=== PATIENT | female | born 1960 | race Caucasian/White ===

== ENCOUNTER 2024-12-03 08:07 | Emergency (ER) | payer BC, SELFPAY ==
[2024-12-03] VITALS (49 sets, daily range): BP systolic 83–114; BP diastolic 54–90; PULSE 62–200; RESP 11–32; TEMP 35.8; O2SAT 94–100; BMI 28.4
--- OUTSIDE RECORDS SUMMARY | 2024-12-03 08:11 | XMS_ITS | Clinical Summary ---
Author Organization [facility] Address [address] [place], [place] [address] [address] Care Team Providers Care Tool Repairer Name Role Phone Lila Reyna MD Primary Care Provider [phone] Allergies Active Allergy Reactions Criticality Noted Date Comments Lisinopril Cough 10/02/2009 Sulfa Antibiotics Rash Low 04/18/2006 Medications aspirin (ASA) 81 MG tablet Take by mouth daily 09/12/2007 Active BYDUREON 2 MG recon vial kit susp for weekly inj 04/20/2018 Active fish oil-omega-3 fatty acids 1000 MG capsule 09/06/2007 Act ar ammonium lactate (AMLACTIN) 12 % external cream daily 10/25/2017 Acti ve atorvastatin (LIPITOR) 20 MG tablet Take 20 mg by mouth 08/05/2018 Active buPROPion (WELLBUTRIN SR) 150 MG 12 hr tablet 05/26/2018 Active cinnamon 500 MG CAPS Take 1,000 mg by mouth 03/15/2018 Active clobetasol (TEMOVATE) 0.05 % CREA cream once daily if needed. 10/13/2017 Active clobetasol (TEMOVATE) 0.05 % external ointment one time if needed. 10/13/2017 Active hydrochlorothia zide (HYDRODIURIL) 25 MG tablet Take 25 mg by mouth 08/05/2018 Active hydrocortisone 2.5 % ointment 10/13/2017 Acti ve ketoconazole (NIZORAL) 2 % external shampoo 04/18/2018 Active losartan (COZAAR) 25 MG tablet 08/07/2018 Active meclizine (ANTIVERT) 12.5 MG tablet Take 12.5 mg by mouth 01/18/2018 Active metFORMIN (GLUCOPHAGE-XR) 500 MG 24 hr tablet 07/19/2018 Active Multiple Vitamin (MULTI-VITAMINS ) TABS 09/06/2007 Active rOPINIRole (REQUIP) 0.25 MG tablet Take 0.25 mg by mouth 01/05/2018 Active FLUoxetine (PROZAC) 10 MG capsule Take 10 mg by mouth daily Active glimepiride (AMARYL) 2 MG tablet Take 4 mg by mouth every morning (before breakfast) Active zinc gluconate 50 MG tablet Take 50 mg by mouth daily Active VITAMIN D, CHOLECALCIFEROL , PO Take 5,000 mcg by mouth Active Active Problems Problem Noted Date Diagnosed Date Psoriasis 08/16/2018 Social History Tobacco Use Types Packs/Day Years Used Date Smoking Tobacco: Never Smokeless Tobacco: Never PHQ-2 Answer Date Recorded PHQ-2 Score 0 08/16/2018 Adolescent Education Answer Date Record ed Getting School Help Needed Not on file 01/21 Comments Unknown Sex and Gender Information Value Date Recorded Sex Assigned at Not on file Legal Sex Female 10:09 AM CDT Gender Identity Not on file Sexual Orientation Not on file Last Filed Vital Signs Vital Sign Reading Time Taken Comments Blood Pressure 141/82 08/16/2018 6:53 AM CDT Pulse 74 08/16/2018 6:53 AM CDT Temperature - - Respiratory Rate - - Oxygen Saturation - - Inhaled Oxygen Concentration - - Weight - - Height - - Body Mass Index - - Plan of Treatment Not on file Insurance [employer] [facility] Care Teams Tool Repairer Relationship Specialty Start Date End Date Lila Reyna MD PCP - General Family Practice 07/24/18
--- OUTSIDE RECORDS SUMMARY | 2024-12-03 08:11 | XMS_ITS | Clinical Summary ---
Author Organization [facility] [facility] Address [address] [place] [address] Care Team Providers Care Facility Manager Histology Name Role Phone Lupe Qiu Primary Care Provider Allergies Active Allergy Reactions Criticality Noted Date Comments Cats (Fur, Dander, Saliva) 7 nasal congestion and watery eyes Lisinopril Cough 10/02/2009 Sulfa (Sulfonamide Antibiotics) Rash 04/18/2006 Medications FISH OIL 1,000 MG CAP Take by mouth. 500 mg once daily 09/06/19 08 Active MULTIVITAMIN TAB take 1 tablet by oral route once daily with food 09/06/19 08 Active hydrocortisone (HYTONE) 2.5 % ointment one time if needed. 10/14/19 18 Active Clobetasol Propionate-Emolnt 0.05 % cream once daily if needed. 10/14/19 18 Active ammonium lactate 12% (LACHYDRIN) 12 % cream one time if needed. 10/26/19 18 Active cholecalciferol, Vitamin D3, 5,000 unit tab tablet Take 5,000 mcg by mouth once weekly. Active aspirin (ECOTRIN) 81 mg enteric coated tabletIndications: Open displaced fracture of first metatarsal bone of right foot with malunion Take 1 Tablet (81 mg) by mouth once daily. 21 Tablet 3 11:39 AM CDT 02/09/20 23 Active meclizine (ANTIVERT) 12.5 mg tabletIndications: Vertigo Take 1 Tablet (12.5 mg) by mouth 3 times daily if needed for Vertigo. 30 Tablet 01/30/20 24 Active blood-glucose meterIndications:D iabetes mellitus without complication (HC) Freestyle [place] Lite - Please dispense meter and strips. Test once daily as directed 1 Each 4 3:07 PM CDT 02/20/20 24 Active blood sugar diagnostic (Blood Glucose Test) stripIndications:D iabetes mellitus without complication (HC) Test 1 times per day as directed. [place] Freestyle Lite meter and compatible strips 100 Each 12 5 8:58 AM CDT 02/20/20 24 Active apremilast (Otezla) 30 mg tab tablet Take 1 tablet by mouth twice daily. 60 Tablet 5 5 10:04 AM CDT 05/24/19 25 Active atorvastatin (Lipitor) 20 mg tabletIndications: Hyperlipidemia, unspecified hyperlipidemia type Take 1 Tablet (20 mg) by mouth at bedtime. 90 Tablet 11/20/19 25 Active buPROPion (WELLBUTRIN SR) 150 mg Sustained-Release tabletIndications: Depression, unspecified depression type Take 1 Tablet (150 mg) by mouth once daily in the morning. 90 Tablet 11/20/19 25 Active FLUoxetine (PROZAC) 10 mg capsuleIndications :Depression, unspecified depression type Take 1 Capsule (10 mg) by mouth once daily in the morning. 90 Capsule 5 3:39 PM CDT 11/20/19 25 Active gabapentin (NEURONTIN) 300 mg capsuleIndications :Restless legs,Neck pain, chronic Take 2 Capsules (600 mg) by mouth at bedtime. 180 Capsule 1 11/20/19 25 Active glimepiride (AmaryL) 4 mg tabletIndications: Diabetes mellitus without complication (HC) Take 1 Tablet (4 mg) by mouth once daily with a meal. 90 Tablet 11/20/19 25 Active hydroCHLOROthiazid e 25 mg tabletIndications: Hypertension, unspecified type Take 1 Tablet (25 mg) by mouth once daily. 90 Tablet 1 5 3:39 PM CDT 11/20/19 25 Active losartan (Cozaar) 100 mg tabletIndications: Hypertension, unspecified type Take 1 Tablet (100 mg) by mouth once daily. 90 Tablet 1 5 3:39 PM CDT 11/20/19 25 Active metFORMIN (GLUCOPHAGE XR) 500 mg Extended-Release tabletIndications: Diabetes mellitus without complication (HC) Take 4 Tablets (2,000 mg) by mouth once daily with evening meal. 360 Tablet 1 5 3:39 PM CDT 11/20/19 25 Active semaglutide (Ozempic) 2 mg/dose (8 mg/3 mL) subcutaneous penIndications:Jayde betes mellitus without complication (HC) Inject 2 mg subcutaneous once weekly. 9 mL 1 11/20/19 25 Active losartan (Cozaar) 100 mg tabletIndications: Hypertension, unspecified type Take 1 Tablet (100 mg) by mouth once daily. 90 Tablet 3 5 8:58 AM CDT 11/23/19 24 025 Discontin ued(Reord er (E-cancel not sent)) FLUoxetine 10 mg capsuleIndications :Depression, unspecified depression type Take 1 Capsule (10 mg) by mouth once daily in the morning. 90 Capsule 3 5 8:58 AM CDT 11/23/19 24 025 Discontin ued(Reord er (E-cancel not sent)) gabapentin 300 mg capsuleIndications :Restless legs,Neck pain, chronic Take 2 Capsules (600 mg) by mouth at bedtime. 180 Capsule 3 5 10:18 AM CDT 11/23/19 24 025 Discontin ued(Reord er (E-cancel not sent)) glimepiride (AmaryL) 4 mg tabletIndications: Diabetes mellitus without complication (HC) Take 1 Tablet (4 mg) by mouth once daily with a meal. 90 Tablet 3 5 12:43 PM CDT 11/23/19 24 025 Discontin ued(Reord er (E-cancel not sent)) hydroCHLOROthiazid e 25 mg tabletIndications: Hypertension, unspecified type Take 1 Tablet (25 mg) by mouth once daily. 90 Tablet 3 5 8:58 AM CDT 11/23/19 24 025 Discontin ued(Reord er (E-cancel not sent)) metFORMIN 500 mg Extended-Release tabletIndications: Diabetes mellitus without complication (HC) Take 4 Tablets (2,000 mg) by mouth once daily with evening meal. 360 Tablet 3 5 8:58 AM CDT 11/23/19 24 025 Discontin ued(Reord er (E-cancel not sent)) atorvastatin (Lipitor) 20 mg tabletIndications: Hyperlipidemia, unspecified hyperlipidemia type Take 1 Tablet (20 mg) by mouth at bedtime. 90 Tablet 3 5 4:10 PM CDT 11/23/19 24 025 Discontin ued(Reord er (E-cancel not sent)) buPROPion 150 mg Sustained-Release tabletIndications: Depression, unspecified depression type Take 1 Tablet (150 mg) by mouth once daily in the morning. 90 Tablet 3 5 10:18 AM CDT 11/23/19 24 025 Discontin ued(Reord er (E-cancel not sent)) semaglutide (Ozempic) 2 mg/dose (8 mg/3 mL) subcutaneous penIndications:Jayde betes mellitus without complication (HC) Inject 2 mg subcutaneous once weekly. 9 mL 3 5 4:01 PM CDT 11/23/19 24 025 Discontin ued(Reord er (E-cancel not sent)) Active Problems Problem Noted Date Diagnosed Date Type 2 diabetes mellitus wit h both eyes affected by mild nonproliferative retinopathy without macular edema, without long-term current use of insulin 07/15/2024 Psoriasis 01/06/2017 Depression 03/20/2015 HTN (hypertension) 04/10/2013 Colon cancer screening 04/05/2013 Overview (08/25/2016): Colonoscopy 2006 after abnormal pet scan Follow up in 10 years. Colonoscopy 07/2016 normal repeat in 10 years Homozygous MTHFR mutation [id number] 03/12/2013 Overview (03/12/2013): Individuals homozygous for the MTHFR c677T gene mutation may develop hyperhomocysteinemia, especially with concurrent deficiency of vitamins B12, B6 (pyridoxine), or folic acid. Pulmonary nodule, left 10/03/2009 Overview (10/03/2009): April [address] biopsy attempted but had pneumothorax PET CT 05/[address] 09/06 no change ASHD (arteriosclerotic heart disease) 07/30/2008 Overview (07/30/2008): hx of soft plaque in the circ and the ramus by CTA Other and unspecified hyperlipidemia 09/06/2007 Family history of ischemic heart disease 008 Overview (09/06/2007): Father with [place] at age 42, at 55 Obesity, unspecified 09/06/2007 Overview (09/06/2007): BMI 34.9 09/06 Type II or unspecified type diabetes mellitus without mention of complication, not stated as uncontrolled Resolved Problems Problem Noted Date Diagnosed Date Resolved Date Open wound of left foot 04/10/201310/30 Iron deficiency anemia, unspecified 02/04/2012 11/10/2022 Overview (02/04/2012): EGD 01/2012 Reactive gastropathy, no bleeding Arthropathy of left midfoot 11/17/2009 11/10/2022 ACL tear 07/04/2008 11/10/2022 Closed fracture of tibial plateau 07/04/2008 11/10/2022 Plantar fascial fibromatosis 01/02/2008 11/10/2022 Chest pain, unspecified 09/06/200707/2020 Swelling, mass, or lump in chest 09/22/2006 05/05/2020 Encounters Date Type Department Care Team Description 12/03/2024 7:50 AM CDT Office Visit [facility] [address] [place] [address] Lupe Qiu PA Palpitations (Rapid, irregular heart beat started this morning) 12/03/2024 Travel 11/30/2024 11:05 AM CDT Telemedicine [facility] [address] [place] [address] Ethel Morgan PA Diarrhea (x2 days worse this morning, Burning sensation) 11/30/2024 Travel 11/27/2024 11:50 AM CDT Office Visit [facility] [address] [facility] [place] [address] Lupe Qiu PA Physical (64 years old) 11/27/2024 7:00 AM CDT Ancillary Procedure [facility] [address] [place] [address] 11/27/2024 Travel 11/01/2024 Orders Only [facility] [place] [address] Allyn Zacarias DO <No scans attached> 10/30/2024 4:45 PM CDT Ancillary Procedure [facility] [address] 10/29/2024 4:20 PM CDT Office Visit [facility] [address] [place] [address] Allyn Zacarias DO Neck Pain/problem (OMT) 10/29/2024 Travel 10/10/2024 8:10 AM CDT Office Visit [facility] [place] [address] Allyn Zacarias DO Shoulder Pain/problem (OMT) 10/10/2024 Travel 10/02/2024 Telephone [facility] [place] [address] Lupe Qiu PA Error-please disregard 09/12/2024 Orders Only [facility] [address] Ethel Morgan PA 1 scan: (1-Ord) NFLD-EKG-09/11/24 09/11/2024 12:55 PM CDT Office Visit [facility] [address] [facility] [place] [address] Ethel Morgan PA Dizziness 09/11/2024 Travel 09/11/2024 Nurse Triage [facility] [address] [place] [address] Ethel Morgan PA Dizziness from Last 3 Months Immunizations Immunization Administration Dates Next Due COVID-19 vaccine (Pfizer-Bio NTech 30mcg/0.3mL) 12YO+ GRANT-SUCROSE PF, MDV 08/06/2021 COVID-19 vaccine (Pfizer-Bio NTech 30mcg/0.3mL) PF, MDV 08/28/2020,08/07/2020 HepA-HepB (Twinrix) 05/29/2019,03/20/2015,2014 Influenza A (H1N1), Inactivated 05/26/2009 Influenza A (H1N1), Inactiva memo (Age >=3 Years) 05/26/2009 Influenza, IIV3 (Age >=3 years) 03/12/20 13,02/15/2012,04/22/2011,2009,01/27/2009,02/17/2007 Influenza, IIV4 03/28/2023,,04/28/2020,2019,01/05/2018,01/06/2017,02/17/2016,0 01/13/2015,01/08/2014 Influenza, Inactivated AIIV4 (Age 65+ Years) Preserv Free 01/25/2022 Pneumococcal Conj 20-valent (Prevnar 20) 10/21/2021 Pneumococcal Poly,23-Valent (Pneumovax) 10/01/2008 Td (Age >=7 Years) 10/15/2020,05/19/2004 Tdap 10/02/2010 Zoster (Shingrix-RZV, recombinant) 10/02/2019, Family History Medical History Relation Name Comments Coronary artery disease Brother 1 Atif Coronary artery disease Brother 2 Steve Alcoholism Brother 4 Karl Recovering Allergies Brother 4 Karl Coronary artery disease Brother 4 Karl Asthma Child Allergies Daughter 1 Jennifer Obesity Daughter 1 Jennifer Obesity Daughter 2 Deloris Coronary artery disease Father Olaf Heart Disease Father Olaf first [place] age 4 2 Heart failure Father Olaf 1st heart traci ck @42 @55 Hypertension Father Olaf Alcoholism Maternal Grandfather Moises Arthritis Mother Kamala Hypertension Mother Kamala Diabetes Other 1 grandparents Cancer Other 2 grandparents Cancer-breast Other 2 great aunt Heart Disease Other 3 grandparents Arthritis Other 4 grandparents Alcohol/Drug Other 5 grandparents Alcoholism Paternal Grandfather Matthew Diabetes Paternal Grandmother Zaida Diabetes Sister 2 Janneth Obesity Sister 2 Janneth Obesity Sister 3 Hamida Obesity Sister 4 Nadia Anesthesia Problem No Family History Cancer-ovarian No Family History Relation Name Status Comments Brother 1 Atif Alive Brother 2 Steve Alive Brother 3 Memo Alive Brother 4 Karl Alive Child Daughter 1 Jennifer Alive Daughter 2 Deloris Alive Father Olaf (Age 55) CAD Maternal Grandfather Moises Alive Mother Kamala (Age 72) kidney catherine miranda complication Other 1 Other 2 Other 3 Other 4 Other 5 Paternal Grandfather Matthew Alive Paternal Grandmother Zaida Alive Sister 1 Alessandra Alive Sister 2 Janneth Alive Sister 3 Hamida Alive Sister 4 Nadia Alive Social History Tobacco Use Types Packs/Day Years Used Date Smoking Tobacco: Former Cigarettes 0.3 1 0 05/02/1977 - 05/02/1978 Smokeless Tobacco: Never Tobacco Cessation:Counseling Given: Not Answered Alcohol Use Standard Drinks/Week Comments Yes 2 (1 standard drink = 0.6 oz pur e alcohol) 2 times per week - 2-3 drinks PHQ-2 Answer Date Recorded PHQ-2 TOTAL SCORE 0 11/23/2023 Social Connections Answer Date Recorded Do you often feel lonely or isolated from those around you? 0 11/27/2024 Alcohol Use Answer Date Recorded How often do you have a drink containing alcohol ? 3 11/23/2023 How many drinks containing a lcohol do you have on a typical day when you are drinking? 0 11/23/2023 How often do you have five or more drinks on one occasion? 0 11/23/2023 Financial Resource Strain Answer Date R ecorded Difficulty of Paying Living Expenses 3 11/27/2024 Difficulty of Paying Living Expenses Not on file 11/27/2024 Food Insecurity Answer Date Recorded Do you worry your food will run out before you are able to buy more? 1 11/27/2024 Transportation Needs Answer Date Record ed Does lack of transportation keep you from medica l appointments? 1 11/27/2024 Does lack of transportation keep you from work, meetings or getting things that you need? 1 11/27/2024 Housing Stability Answer Date Recorded What is your housing situation today? 1 11/27/2024 Utilities Answer Date Recorded Do you have trouble paying f or utilities (for example, heat, electricity, water, phone)? 1 11/27/2024 Comments No Sex and Gender Information Value Date Recorded Sex Assigned at Not on file Legal Sex Female 5:26 AM [employer] Gender Identity Not on file Sexual Orientation Not on file Obstetrics History Para Term AB IAB SAB Ectopic Multiple Livin g Live Births 2 2 2 0 0 0 0 0 0 2 Date Outcome GA Total Labor Labor/2nd/3rd Weight Sex Type Anes PTL Sangita A1 A5 Name Clin Term Term Last Filed Vital Signs Vital Sign Reading Time Taken Comments Blood Pressure 104/70 12/03/2024 7:40 AM CDT Pulse 116 12/03/2024 7:40 AM CDT Temperature 36.3 C (97.3 F) 02/08/2023 12:15 PM CDT Respiratory Rate 16 02/08/2023 12:1 5 PM CDT Oxygen Saturation 100% 12/03/2024 7:40 AM CDT Inhaled Oxygen Concentration - - Weight 73.9 kg (162 lb 14.4 oz) 025 11:53 AM CDT Height 158 cm (5' 2.21) 11/27/2024 11: 53 AM CDT Body Mass Index 29.6 11/27/2024 11:53 AM CDT Plan of Treatment Upcoming Encounters Date Type Department Care Team (Late st Contact Info) Description 12/11/2024 4:00 PM CDT Appointment [facility] [address] [place] [address] Brenda Gomez, PT [address] [place] [address] Health Maintenance Due Date Last Done Comments HIV for age 15-65 11/05/1974 RSV vaccine for adults or (1 - Risk 60-74 years 1-dose series) 2019 COVID-19 vaccine series (2023- season) 2024 08/06/2021, 08/28/2020, 08/07/2020 DEXA/DXA scan for age 65+ 11/05/2024 Depression screening for age 12+ 11/22/2024 11/23/2023, 09/02/2021, 09/01/2021, Additional history exists Influenza Vaccine (#1) 2024 3, 01/25/2022, 03/12/2021, Additional history exists BMI (ht and wt on same day) for age 18+ 11/27/2025 11/27/2024, 11/23/2023, 11/10/2022, Additional history exists Mammogram for age 45-75 11/27/2025 11/28/19 25, 11/17/2023, 10/27/2022, Additional history exists Colonoscopy through age 75 08/25/202608/25, 08/25/2016, 08/25/2016, Additional history exists Lipids for age 45-75 11/27/2029 11/27/2024, 02/10/2024, 11/10/2022, Additional history exists Tetanus booster 10/15/2030 10/15/2020, 0606/2010, 05/19/2004 Hepatitis C screening for ag e 18-79 Completed 05/21/2019 Hepatitis B series for 19+ Completed 05/29, 03/20/2015, 01/13/2015 Zoster (shingles) series for age 50+ Completed 10/02/2019, 06/25/2019 Pneumococcal series for age 50+ Completed 2, 10/01/2008 Medical Devices Implanted Type Area Mine Engineering Manager Device Identifier Shelf Expiration Date Model / Serial / Lot [id number] - [id number] Implanted:Qty: 1 on 05/07/2022 by Raji Bernardo MD at [facility] Right: Foot [employer] 12/21/2022 [id number] / / [id number] Description:2.5 x 10mm/ forc efiber #2/ c-7 sonicanchor kit Screw Sm Joint 2.7x16mm Variax 2 Lock Titnm - [id number] Implanted:Qty: 1 on 02/08/2023 by Raji Bernardo MD at [facility] Right: Foot [employer] [id number] / / Description:Load [id number] Screw Sm Joint 2.7x18mm Variax 2 Lock Titnm - [id number] Implanted:Qty: 1 on 02/08/2023 by Raji Bernardo MD at [facility] Right: Foot [employer] [id number] / / Description:Load [id number] Screw Sm Joint 2.7x22mm Variax 2 Lock Titnm - [id number] Implanted:Qty: 1 on 02/08/2023 by Raji Bernardo MD at [facility] Right: Foot [employer] [id number] / / Description:Load [id number] Bone 2.5cc Allofiber Fiber - [id number] Implanted:Qty: 1 on 02/08/2023 by Raji Bernardo MD at [facility] Right: Foot [employer] 01/24/2024 [id number] / [id number] / Screw Sm Joint 2.4x12mm Variax 2 Lock Titnm - [id number] Implanted:Qty: 1 on 02/08/2023 by Raji Bernardo MD at [facility] Right: Foot [employer] [id number] / / Description:Load [id number] Screw Sm Joint 2.4x18mm Variax 2 Lock Titnm - [id number] Implanted:Qty: 1 on 02/08/2023 by Raji Bernardo MD at [facility] Right: Foot [employer] [id number] / / Description:Load [id number] Plate Sm Joint 2.3mm 4 Hole M Variax Lock Stra Bar - [id number] Implanted:Qty: 1 on 02/08/2023 by Raji Bernardo MD at [facility] Right: Foot [employer] [id number] / / Description:Load [id number] Plate Sm Joint 2 Hole Variax 2 Slim Y T8 - [id number] Implanted:Qty: 1 on 02/08/2023 by Raji Bernardo MD at [facility] Right: Foot [employer] [id number] / / Description:Load [id number] Screw Sm Joint 2.7x12mm Variax 2 Lock Titnm - [id number] Implanted:Qty: 1 on 02/08/2023 by Raji Bernardo MD at [facility] Right: Foot [employer] [id number] / / Description:Load [id number] Explanted Type Area Mine Engineering Manager Device Identifier Shelf Expiration Date Model / Serial / Lot Wire Kirs .[id number] Smooth 6/Pk Depuy/Diallo - [id number] Explanted:Qty: 2 on 05/07/2022 by Raji Bernardo MD at [facility] Right: Foot [employer] / / Description:Load # 1 7 [id number] 2 Plate Sm Joint 5 Hole Variax 2 Slim Stra T8 - [id number] Implanted:Qty: 1 on 05/07/2022 by Raji Bernardo MD at [facility] Explanted:Qty: 1 on 02/08/2023 at [facility] Right: Foot [employer] [id number] / / Description:[place] \ Plate [id number] Load [id number] Screw Sm Joint 2.7x12mm Variax 2 Lock Titnm - [id number] Implanted:Qty: 1 on 05/07/2022 by Raji Bernardo MD at [facility] Explanted:Qty: 1 on 02/08/2023 by Raji Bernardo MD at [facility] Right: Foot [employer] [id number] / / Description:Load # 3 8 [id number] 3 Screw Sm Joint 2.7x14mm Variax 2 Lock Titnm - [id number] Implanted:Qty: 1 on 05/07/2022 by Raji Bernardo MD at [facility] Explanted:Qty: 1 on 02/08/2023 at [facility] Right: Foot [employer] [id number] / / Description:Load # 3 8 [id number] 3 Screw Sm Joint 2.7x22mm Variax 2 Lock Titnm - [id number] Implanted:Qty: 2 on 05/07/2022 by Raji Bernardo MD at [facility] Explanted:Qty: 2 on 02/08/2023 at [facility] Right: Foot [employer] [id number] / / Description:Load # 3 8 16917 3 Wire Kirs .[id number] Smooth 6/Pk Depuy/Diallo - [id number] Explanted:Qty: 2 on 02/08/2023 by Raji Bernardo MD at [facility] Right: Foot [employer] / / Description:Load [id number] Procedures Procedure Name Priority Date/Time Associated Diagnosis Comments HEMOGLOBIN A1C MONITORING (POCT) Routine 11/27/2024 2:17 PM CDT Diabetes mellitus without complication (HC) LIPID PANEL W REFLEX MEASURED LDL Routine 11/27/2024 2:14 PM CDT Diabetes mellitus without complication (HC) Hyperlipidemia, unspecified hyperlipidemia type XR MAMMO TIMBO BILAT SCREEN Routine 11/27/2024 7:17 AM CDT Visit for screening mammogram XR SPINE CERVICAL 3 VIEWS Routine 10/30/2024 4:48 PM CDT Neck muscle spasm Neck pain, chronic EKG 12 LEAD Routine 09/12/2024 8:19 AM CDT Episodic lightheadedness [place] READING EKG - NO CHARGE, COMP ONLY Routine 09/12/2024 8:15 AM CDT Episodic lightheadedness ANTI HCV Routine 05/21/2019 12:26 PM [employer] Need for hepatitis C screening test COLONOSCOPY 08/25/2016 8:41 AM CDT Screen for colon cancer from Last 3 Months or Most Recently Relevant to Health Maintenance Results * (ABNORMAL) HEMOGLOBIN A1C MONITORING (POCT) (11/27/2024 2:17 PM CDT) POC HEMOGLOBIN A1C 7.2(H) <6.0 % OF TOTAL HGB [facility] Comment: Any point of care results exhibiting inconsistency with the patient's clinical status should be repeated using a different testing method. Blood BLOOD SPECIMEN / Unknown 11/27/2024 2:17 PM CDT 11/27/2024 2:17 PM CDT Lupe FIELDS CHEMISTRY Final R esult [facility] [address] [place] [address], [place] [phone] [facility] [address] [place] [address] * (ABNORMAL) LIPID PANEL W REFLEX MEASURED LDL (11/27/2024 2:14 PM CDT) CHOLESTEROL, TOTAL 103 <200 mg/dL [facility] HDL CHOLESTEROL 34(L) > OR = 50 mg/dL [facility] TRIGLYCERIDES 137 <150 mg/dL [facility] LDL-CHOLESTEROL 47 mg/dL (calc) [facility] Comment: Reference range: <100 Desirable range <100 mg/dL for primary prevention; <70 mg/dL for patients with CHD or diabetic patients with > or = 2 CHD risk factors. LDL-C is now calculated using the Horacio calculation, which is a validated novel method providing better accuracy than the Friedewald equation in the estimation of LDL-C. Mohamud PANCHAL et al. AURA. 2013;310(19): 1667-7180 (http://education.MediaMogul/faq/UPD960) CHOL/HDLC RATIO 3.0 <5.0 (calc) [facility] NON HDL CHOLESTEROL 69 <130 mg/dL (calc) [facility] Comment: For patients with diabetes plus 1 major ASCVD risk factor, treating to a non-HDL-C goal of <100 mg/dL (LDL-C of <70 mg/dL) is considered a therapeutic option. Blood BLOOD SPECIMEN / Unknown 11/27/2024 2:14 PM CDT 11/27/2024 2:17 PM CDT Lupe FIELDS CHEMISTRY Final R esult [facility] [address] [facility] [place] [address], [place] [phone] [facility] [address] [facility] [place] [address] * XR MAMMO TIMBO BILAT SCREEN (11/27/2024 7:17 AM CDT) Anatomical Region Laterality Modality BREASTS, Breast Left, Breast Right Bilateral Mammography Impressions 11/27/2024 3:09 PM CDT There is no radiographic evidence for malignancy. Recommend annual mammograms. MAMMOGRAM ASSESSMENT: ACR 1 Negative PATIENTS: You will also receive a letter with your examination results in an easy to read format. If you have questions about your results, please contact your referring provider. Narrative 11/27/2024 3:09 PM CDT For Patients: As a result of the Cures Act, medical imaging exams and procedure reports are released immediately into your electronic medical record. You may view this report before your referring provider. If you have questions, please contact your health care provider. XR MAMMO TIMBO BILAT SCREEN [[id number]] CLINICAL HISTORY: This is an asymptomatic 64 y.o. patient. INDICATION FOR EXAM: Mammogram Screening. TECHNIQUE: CC and MLO views were obtained. This study was evaluated with the assistance of Computer-Aided Detection. Breast Tomosynthesis was used in interpretation. COMPARISON FILM: Yes 11/17/23 [facility] 10/27/22 [facility] FINDINGS: The breasts are almost entirely fatty. There are no dominant masses, suspicious micro calcifications or areas of architectural distortion. us Lupe FIELDS MAMMO Final R esult * XR SPINE CERVICAL 3 VIEWS (10/30/2024 4:48 PM CDT) Anatomical Region Laterality Modality CERVICAL SPINE Computed Radiogr aphy 10/30/2024 9:50 PM CDT Impressions 10/30/2024 9:50 PM CDT 1. No radiographic evidence of acute osseous injury. 2. Degenerative changes at C5-6 and C7-T1. Dictated by Waldemar Alarcon MD @ 10/30/2024 9:50:12 PM (Electronically Signed) Narrative 10/30/2024 9:50 PM CDT For Patients: As a result of the Cures Act, medical imaging exams and procedure reports are released immediately into your electronic medical record. You may view this report before your referring provider. If you have questions, please contact your health care provider. INDICATION: Neck pain. FINDINGS: Three views of the cervical spine are submitted. No comparison. The overall stature and alignment of the cervical spine is within normal limits. The prevertebral soft tissues, dens and lateral masses are within normal limits. Mild loss of intervertebral disc space height with endplate osteophyte formation at C5-6. Remainder of the intervertebral disc space height appears within normal limits. Facet arthropathy at C7-T1. Procedure Note Raoul Alarcon, - 10/30/2024 For Patients: As a result of the Cures Act, medical imagingexams and procedure reports are released immediately into your electronicmedical record. You may view this report before your referring provider.If you have questions, please contact your health care provider. INDICATION: Neck pain. FINDINGS: Three views of the cervical spine are submitted. No comparison. The overall stature and alignment of the cervical spine is within normallimits. The prevertebral soft tissues, dens and lateral masses are withinnormal limits. Mild loss of intervertebral disc space height with endplateosteophyte formation at C5-6. Remainder of the intervertebral disc spaceheight appears within normal limits. Facet arthropathy at C7-T1. IMPRESSION: 1. No radiographic evidence of acute osseous injury. 2. Degenerative changes at C5-6 and C7-T1. Dictated by Waldemar Alarcon MD @ 10/30/2024 9:50:12 PM (Electronically Signed) Allyn Zacarias DO GENERAL IMAGING Final Resul t * EKG 12 LEAD (09/12/2024 8:19 AM CDT) us Ethel FIELDS EKG ORD Final Result * [place] READING EKG - NO CHARGE, COMP ONLY (09/12/2024 8:15 AM CDT) us Ethel FIELDS PB - PROVIDER READINGS Final Result * ANTI HCV (05/21/2019 12:26 PM COURTESY BOOTH CASHIER) HEPATITIS C ANTIBODY Non-React ar Non-React ar 05/21/2019 6:52 PM COURTESY BOOTH CASHIER [facility] Comment:Antibodies to HCV no t detected; does not exclude the possibility of exposure to HCV. Blood BLOOD SPECIMEN / Unknown Venipuncture / Unknown 05/21/2019 12:26 PM COURTESY BOOTH CASHIER 05/21/2019 12:28 PM COURTESY BOOTH CASHIER Lila Reyna MD SEND OUTS Final Result [facility] [address] [place] [address], [place] * COLONOSCOPY (08/25/2016 8:41 AM CDT) 08/25/2016 8:41 AM CDT Narrative Transcriptions Mohamud Diaz MD - 08/25/2016 10:33 AM CDT Patient Name: Erma Lopez Procedure Date: 08/25/2016 Gender: Female Date of : 1960 Admit Type: Outpatient Procedure: Colonoscopy Proceduralist: Mohamud Diaz MD , Sherie Isbell (Nurse) Indications/Pre-Op Diagnosis: Screening for colorectal malignant neoplasm, Last colonoscopy: June 2006 Medications: Fentanyl 100 micrograms IV, Midazolam 4 mgIV, The level of sedation administered wasmoderate Procedure Description: The patient had risks, benefits and alternatives explained to andgave informed consent. The patient had a stable cardiopulmonary status and judged an adequate candidate for conscious sedation. The [id number] was passed through the anus and advanced tothe cecum, identified by appendiceal orifice and ileocecal valve. The colonoscopy was performed without difficulty. The patient toleratedthe procedure well. The quality of the bowel preparation was good. The ileocecal valve, appendiceal orifice, and rectum were photographed. Complications: No immediate complications. Estimated Blood Loss & Specimen: Estimated blood loss: none. Specimen collected - None Findings: Multiple small and large-mouthed diverticula were found in thesigmoid colon and descending colon. The exam was otherwise without abnormality on direct and retroflexion views. Impressions/Post-Op Diagnosis: - Diverticulosis in the sigmoid colon and in the descending colon. - The examination was otherwise normal on direct and retroflexionviews. - No specimens collected. Recommendation: - Patient has a contact number available for emergencies. The signsand symptoms of potential delayed complications were discussed with the patient. Return to normal activities tomorrow. Written discharge instructions were provided to the patient. - Resume previous diet. - Continue present medications. - Repeat colonoscopy in 10 years for screening purposes. Moderate Sedation: Moderate (conscious) sedation was administered by the endoscopy nurse and supervised by the endoscopist. The following parameters were monitored: oxygen saturation, heart rate, respiratory rate, blood pressure, adequacy of pulmonary ventilation and reponse to care. [facility] and nursing notes for moderate sedation details. Total physician intraservice time was 20 minutes. Mohamud Diaz MD 08/25/2016 10:33:05 AM This report has been signed electronically. Note Initiated On: 08/25/2016 8:41 AM Procedure Code(s): --- Professional --- 64775, Colonoscopy, flexible; diagnostic, including collection of specimen(s) bybrushing or washing, when performed (separateprocedure) Diagnosis Code(s): --- Professional --- Z12.11, Encounter for screening formalignant neoplasm of colon K57.30, Diverticulosis of large intestine without perforation or abscess withoutbleeding CPT copyright 2016 [employer]. All rights reserved. The codes documented in this report are preliminary and upon informatics application analyst reviewmay be revised to meet current compliance requirements. Scope In: 9:32:45 AM Scope Withdrawal Time 0 hours 8 minutes 15 seconds Scope Out: 9:48:03 AM Mohamud Diaz MD PROCEDURE ORD Final Res ult from Last 3 Months or Most Recently Relevant to Health Maintenance Additional Health Concerns Infection Onset Date Last Indicated Rule-Out Stool Pathogen 11/30/2024 12/01/19 25 Insurance [employer] Advance Directives Documents on File Type Date Recorded Patient Clothes Designer Expl anation Healthcare Directive 06/20/2024 10:14 AM H EALTH CARE DIRECTIVE * Full Code (Latest Code Status on File) Date Activated Date Inactivated Comments 02/08/2023 7:27 AM 02/08/2023 2:46 PM Question Answer Comments Code Status Discussion: Per Existing OrderDiscus sed * Full Code Date Activated Date Inactivated Comments 05/07/2022 8:13 AM 05/07/2022 7:01 PM Question Answer Comments Code Status Discussion: Per Existing OrderDiscus sed * Full Code Date Activated Date Inactivated Comments 04/10/2013 8:24 PM 04/13/2013 10:05 PM * Full Code Date Activated Date Inactivated Comments 04/10/2013 11:24 AM 04/10/2013 8:24 PM Care Teams Facility Manager Histology Relationship Specialty Start Date End Date [place] [place] [address] PCP - General Physician Computer Numerical Control Grinder 08/12/22
[2024-12-03 09:06] LABS: Hematocrit 42.4 % (33.0-51.0); Hemoglobin* 14.0 gm/dL (12.0-16.0); Immature Granulocytes Pct Auto 0.5 %; Mean Corpuscular HGB Conc 33 gm/dL (32-36); Mean Corpuscular Hemoglobin 29 pg (26-34); Mean Corpuscular Volume 87 fL (80-100); RDW Coefficient of Variation % 13.2 % (11.5-15.5); Red Blood Count 4.90 m/uL (4.00-5.20); White Blood Count* 19.54 K/uL (4.50-11.00)
[2024-12-03 09:07] LABS: Chloride* 103 mmol/L (96-114); Potassium* 3.8 mmol/L (3.6-5.1); Sodium* 136 mmol/L (135-149)
[2024-12-03 09:09] LABS: Blood Urea Nitrogen* 24 mg/dL (7-30); Creatinine* 1.5 mg/dL (0.5-1.5); Est. Creatinine Clearance* 29.57; Estimated Glomerular Filt Rate 38 ml/min
[2024-12-03 09:10] LABS: Anion Gap 16 mEq/L (7-15); Calcium* 9.8 mg/dL (8.4-10.6); Carbon Dioxide* 17 mmol/L (20-32); Glucose* 288 mg/dL (60-115); Immature Granulocytes Abs Auto 0.10 K/uL (0.00-0.30); Lymphocytes Absolute Auto 3.40 K/uL (0.90-2.90); Slide Review Reflex No
[2024-12-03] MEDS: dilTIAZem 5 MG/ML inj 10 MG IVP ×2 (09:10→11:22)
[2024-12-03] MEDS: ASPIRIN 81 MG TAB.CHEW 324 MG PO (09:10)
[2024-12-03 09:11] LABS: INR 0.99 (0.91-1.10); Prothrombin Time 13.9 Seconds
[2024-12-03 09:16] LABS: Lactate* 5.4 mmol/L (0.5-1.9)
[2024-12-03 09:17] LABS: D Dimer Quantitative* < 0.27 ug/ml (0.00-0.50)
[2024-12-03 09:21] LABS: Ethanol* < 0.01 % (0.01-0.03); NT Pro B Type NatriureticPept* 435 pg/mL (See Note)
[2024-12-03 09:22] LABS: Troponin, Point-of-Care* 0.00 ng/ml (0.01-0.04)
[2024-12-03] MEDS: LACTATED RINGERS 1000 ML 1,000 ML 250 ML IV (11:23)
[2024-12-03] MEDS: MAGNESIUM IV 2 GM/50 ML PIGGYBACK IVPB (11:25)
--- NOTE | 2024-12-03 11:41 | CRLHL7_ITS ---
For Patients: As a result of the Century Cures Act, medical imaging exams and procedure reports are released immediately into your electronic medical record. You may view this report before your referring provider. If you have questions, please contact your health care provider. INDICATION: SOB. COMPARISON: 01/22/2012 TECHNIQUE: Portable AP view of the chest. FINDINGS: Medical Devices: None. Lung Volumes: Adequate inspiration. No significant atelectasis. Lungs: Unchanged benign calcified left basilar granuloma. Otherwise clear lungs. Pleura and Pleural spaces: No significant pleural effusion. No pneumothorax. Mediastinum: Stable cardiomediastinal silhouette. Bony Thorax and Soft Tissues: No significant incidental findings. IMPRESSION: No findings to explain the clinical history. Incidental findings described in the body of the report. Dictated by Robert Hart MD @ 12/03/2024 12:25:04 PM (Electronically Signed)
[2024-12-03 11:46] LABS: Appearance Urine Clear (Clear)
[2024-12-03 11:56] LABS: Other Sediment Urine FEW YEAST
[2024-12-03 12:24] LABS: Lactate* 3.2 mmol/L (0.5-1.9)
[2024-12-03 14:55] LABS: Lactate* 2.4 mmol/L (0.5-1.9)
[2024-12-03 15:02] LABS: Troponin, Point-of-Care* 0.01 ng/ml (0.01-0.04)
--- NOTE | 2024-12-03 15:50 | ED.ARRPALP ---
HPI - Arrhythmia/Palpitations General Date Seen: 12/03/24 Chief Complaint: Arrhythmia/Palpitations Stated Complaint: AFib Time Seen by Provider: 12/03/24 08:53 Source: patient and family Mode of arrival: ambulatory Limitations: no limitations History of Present Illness HPI narrative: Patient is a very nice lady who sent over from the [facility], after being seen there this morning with an elevated heart rate, and feeling unwell. She has a little bit lightheaded associated with this denies any chest pain, shortness of breath, she think she may be in atrial fibrillation, as I with the provider there thought. She thought in the past she had possibly had this happen to her before, she has been sick for the last 3-4 days, with initially for some diarrhea, loose stools absence of any fevers, chills, she has had a poor oral intake also. Denies any use of alcohol, denies any use of drugs, denies any leg swelling history DVTs or pulmonary emboli. No history of any cardio or pulmonary issues. She declined use of an ambulance from the [facility]. MD complaint: heart racing and palpitations Related Data Home Medications ?Medication ?Instructions ?Recorded ?Confirmed Fish Oil 12/03/24 apremilast 30 mg tablet (Otezla) 30 mg PO BID 12/03/24 12/03/24 aspirin 81 mg tablet,delayed 81 mg PO DAILY 12/03/24 12/03/24 release (Adult Aspirin Regimen) atorvastatin 20 mg tablet 20 mg PO DAILY 12/03/24 12/03/24 bupropion HCl 150 mg tablet,12 hr 150 mg PO DAILY 12/03/24 12/03/24 sustained-release cholecalciferol (vitamin D3) 12/03/24 clobetasol 0.05 % topical cream topical BID PRN 12/03/24 fluoxetine 10 mg capsule 10 mg PO DAILY 12/03/24 12/03/24 gabapentin 300 mg capsule PO 12/03/24 glimepiride 4 mg tablet 4 mg PO DAILY 12/03/24 12/03/24 hydrochlorothiazide 25 mg tablet 25 mg PO DAILY 12/03/24 12/03/24 hydrocortisone 2.5 % topical cream applic topical BID 12/03/24 losartan 100 mg tablet 100 mg PO DAILY 12/03/24 12/03/24 meclizine 12.5 mg tablet 12.5 mg PO 3XD PRN vertigo 12/03/24 12/03/24 metformin 500 mg tablet,extended 1,000 mg PO BID 12/03/24 12/03/24 release 24 hr semaglutide 2 mg/dose (8 mg/3 mL) mg subcut 12/03/24 subcutaneous pen injector (Ozempic) Allergies Allergy/AdvReac Type Severity Reaction Status Date / Time Sulfa (Sulfonamide Allergy Intermediate Verified 12/03/24 08:20 Antibiotics) lisinopril Allergy Mild Verified 12/03/24 08:20 Review of Systems Status of ROS: Reports: 10 or more systems reviewed and unremarkable except as noted in History and below [facility] Social History Non-prescribed substance use: denies use Exam Narrative: Exam Narrative: On examination stayed 2 she is in no apparent distress she is pleasant and alert speaking to me normally good color, nontoxic, pupils equal round reactive to light there is no scleral icterus redness or TMs are normal oropharynx is normal her neck is supple full range of motion, chest is good air entry bilaterally no wheezing crackles noted heart sounds are normal, cranial nerves 3-12 are normal peripheral and proximal muscle strength is normal she moves entirely normally her abdomen is entirely soft there is no guarding no organomegaly bowel sounds are normal no CVA tenderness, skin reveals no petechiae rashes she is otherwise normal. Const: Vital Signs, click to edit/add: Vital Signs - 24 hr 12/03/24 08:16 12/03/24 08:39 12/03/24 09:23 Temperature 96.4 F L Pulse Rate 96 Pulse Rate [Pulse Oximeter] 200 H Respiratory Rate 18 13 Blood Pressure 90/54 L Blood Pressure [Ri ght Upper Arm] 105/89 Pulse Oximetry 100 97 98 Oxygen Delivery Me thod Room Air 12/03/24 09:30 12/03/24 09:31 12/03/24 09:32 Temperature Pulse Rate 99 105 H 88 Pulse Rate [Pulse Oximeter] Respiratory Rate 12 20 25 H Blood Pressure 96/78 Blood Pressure [Ri ght Upper Arm] Pulse Oximetry 96 95 95 Oxygen Delivery Me thod 12/03/24 09:45 12/03/24 10:00 12/03/24 10:02 Temperature Pulse Rate 96 89 99 Pulse Rate [Pulse Oximeter] Respiratory Rate 24 16 20 Blood Pressure 114/90 H Blood Pressure [Ri ght Upper Arm] Pulse Oximetry 94 96 97 Oxygen Delivery Me thod 12/03/24 10:15 12/03/24 10:30 12/03/24 10:32 Temperature Pulse Rate 87 94 106 H Pulse Rate [Pulse Oximeter] Respiratory Rate 14 14 15 Blood Pressure 94/54 L Blood Pressure [Ri ght Upper Arm] Pulse Oximetry 96 95 96 Oxygen Delivery Me thod 12/03/24 10:33 12/03/24 10:45 12/03/24 11:00 Temperature Pulse Rate 109 H 85 77 Pulse Rate [Pulse Oximeter] Respiratory Rate 19 15 18 Blood Pressure Blood Pressure [Ri ght Upper Arm] Pulse Oximetry 96 98 96 Oxygen Delivery Me thod 12/03/24 11:02 12/03/24 11:03 12/03/24 11:21 Temperature Pulse Rate 96 99 Pulse Rate [Pulse Oximeter] Respiratory Rate 16 15 32 H Blood Pressure 98/57 L Blood Pressure [Ri ght Upper Arm] Pulse Oximetry 96 96 Oxygen Delivery Me thod 12/03/24 11:30 12/03/24 11:32 12/03/24 11:45 Temperature Pulse Rate 86 76 Pulse Rate [Pulse Oximeter] Respiratory Rate 18 21 18 Blood Pressure 85/61 L Blood Pressure [Ri ght Upper Arm] Pulse Oximetry 96 96 Oxygen Delivery Me thod 12/03/24 11:47 12/03/24 12:00 12/03/24 12:01 Temperature Pulse Rate 88 68 73 Pulse Rate [Pulse Oximeter] Respiratory Rate 13 18 28 H Blood Pressure 83/65 L 93/57 L Blood Pressure [Ri ght Upper Arm] Pulse Oximetry 97 99 98 Oxygen Delivery Me thod 12/03/24 12:15 12/03/24 12:17 12/03/24 12:30 Temperature Pulse Rate 73 74 72 Pulse Rate [Pulse Oximeter] Respiratory Rate 11 L 14 19 Blood Pressure 86/60 L Blood Pressure [Ri ght Upper Arm] Pulse Oximetry 98 99 97 Oxygen Delivery Me thod 12/03/24 12:31 12/03/24 12:32 12/03/24 12:45 Temperature Pulse Rate 77 69 71 Pulse Rate [Pulse Oximeter] Respiratory Rate 15 14 13 Blood Pressure 98/63 Blood Pressure [Ri ght Upper Arm] Pulse Oximetry 95 97 95 Oxygen Delivery Me thod 12/03/24 12:46 12/03/24 12:47 12/03/24 13:00 Temperature Pulse Rate 74 75 73 Pulse Rate [Pulse Oximeter] Respiratory Rate 14 13 Blood Pressure 100/63 Blood Pressure [Ri ght Upper Arm] Pulse Oximetry 98 97 99 Oxygen Delivery Me thod 12/03/24 13:01 12/03/24 13:02 12/03/24 13:15 Temperature Pulse Rate 73 74 72 Pulse Rate [Pulse Oximeter] Respiratory Rate 19 13 19 Blood Pressure 98/58 L Blood Pressure [Ri ght Upper Arm] Pulse Oximetry 96 95 96 Oxygen Delivery Me thod 12/03/24 13:17 12/03/24 13:30 12/03/24 13:31 Temperature Pulse Rate 73 68 68 Pulse Rate [Pulse Oximeter] Respiratory Rate 22 15 23 Blood Pressure 101/61 104/60 Blood Pressure [Ri ght Upper Arm] Pulse Oximetry 96 99 97 Oxygen Delivery Me thod 12/03/24 13:45 12/03/24 13:46 12/03/24 14:00 Temperature Pulse Rate 68 68 69 Pulse Rate [Pulse Oximeter] Respiratory Rate 19 19 21 Blood Pressure 105/58 L Blood Pressure [Ri ght Upper Arm] Pulse Oximetry 96 97 95 Oxygen Delivery Me thod Course Course ED Course: Course in the emergency room has been 1 of improvement, fluids were given, lactate was initially elevated, this came down nicely, with 3 L of fluid over the course of time. Here. I also gave 2 g of magnesium, along with 20 mg total of diltiazem. Pressures did get a little low at times, but then came back up. No fever, and white count was initially elevated, when she converted over from atrial fibrillation she room remained a good rate. Patient was able to walk around fell hungry, felt back to baseline, recheck of her at this point showed oropharynx normal, chest clear heart sounds normal, abdomen entirely benign. This was done just pre discharge. I did talk her into getting some blood cultures close eye worried that I was possibly missing a sepsis that maybe caused her to become atrial fibrillation, was some evidence of 1+ leukocyte esterase not enough to hang my had on for UTI, but I do think follow-up cultures of both her blood in urine or appropriate. I went over and talked with her and her sister, worsening condition where she should follow up at once. She is advocating for discharge which I am not against. Follow-up troponin was also normal. Vital Signs Vital signs: Initial Vital Signs Temperature 96.4 F L 12/03/24 08:16 Temperature Source Temporal Artery Scan 12/03/24 08:16 Pulse Rate 200 H 12/03/24 08:16 Respiratory Rate 18 12/03/24 08:16 Blood Pressure 105/89 12/03/24 08:16 Blood Pressure Mean 94 12/03/24 08:16 Blood Pressure Position Supine 12/03/24 08:16 Pulse Oximetry 100 12/03/24 08:16 Oxygen Delivery Method Room Air 12/03/24 08:16 Vital Signs Temperature 96.4 F L 12/03/24 08:16 Pulse Rate 200 H 12/03/24 08:16 Respiratory Rate 18 12/03/24 08:16 Blood Pressure 105/89 12/03/24 08:16 Pulse Oximetry 100 12/03/24 08:16 Oxygen Delivery Method Room Air 12/03/24 08:16 Temperature 96.4 F L 12/03/24 08:16 Pulse Rate 69 12/03/24 14:00 Respiratory Rate 21 12/03/24 14:00 Blood Pressure 105/58 L 12/03/24 13:46 Pulse Oximetry 95 12/03/24 14:00 Oxygen Delivery Method Room Air 12/03/24 08:16 Medications Administered Medications: Generic Name Dose Route Start Last Admin Trade Name Freq PRN Reason Stop Dose Admin Lactated Ringer's 1,000 mls @ 250 mls/hr 12/03/24 11:00 12/03/24 15:47 Lactated Ringers 1000 Ml IV Infused .Q4H MARTHA Infusion Discontinued Medications Generic Name Dose Route Start Last Admin Trade Name Freq PRN Reason Stop Dose Admin Aspirin 324 mg 12/03/24 08:54 12/03/24 09:10 Aspirin 81 Mg Tab.Chew PO 12/03/24 08:55 324 mg ONCE ONE Administration Diltiazem HCl 10 mg 12/03/24 08:54 12/03/24 09:10 Diltiazem 5 Mg/Ml Inj IVP 12/03/24 08:55 5 mg ONCE ONE Administration Diltiazem HCl 10 mg 12/03/24 10:58 12/03/24 11:22 Diltiazem 5 Mg/Ml Inj IVP 12/03/24 10:59 10 mg ONCE ONE Administration Sodium Chloride 1,000 mls @ 1,000 mls/hr 12/03/24 09:00 12/03/24 11:49 0.9 % Sodium Chloride 1000 Ml IV 12/03/24 09:59 Infused .Q1H MARTHA Infusion Sodium Chloride 1,000 mls @ 1,000 mls/hr 12/03/24 08:57 12/03/24 10:08 0.9 % Sodium Chloride 1000 Ml IV 12/03/24 09:56 Infused .Q1H MARTHA Infusion Magnesium Sulfate 2 gm in 50 mls @ 25 mls/hr 12/03/24 10:57 12/03/24 13:17 Magnesium Iv IVPB 12/03/24 12:56 Infused ONCE ONE Infusion MDM - Arrhythmia/Palpitations Differential Diagnosis Differential diagnosis: Likely palpitations, anxiety, sinus tachycardia, artial fibrillation, artial flutter, ventricular premature beats, supraventricular tachycardia, ventricular tachycardia and WPW Medical Records Attestation: I reviewed the patient's medical records. Lab Data Attestation: I reviewed the patient's lab results. Labs: Lab Results 12/03/24 12/03/24 12/03/24 Range/Units 08:23 08:56 11:19 WBC 19.54 H (4.50-11.00) K/uL RBC 4.90 (4.00-5.20) m/uL Hgb 14.0 (12.0-16.0) gm/dL Hct 42.4 (33.0-51.0) % MCV 87 (80-100) fL MCH 29 (26-34) pg MCHC 33 (32-36) gm/dL RDW Coeff of Barrett 13.2 (11.5-15.5) % Plt Count 467 H (140-440) K/uL Neut % (Auto) 61.1 (42.0-72.0) % Lymph % (Auto) 17.2 L (20-44) % [place] % (Auto) 7.1 (0.0-11.0) % Eos % (Auto) 13.9 H (0.0-7.0) % Baso % (Auto) 0.2 (0.0-3.0) % Neut # (Auto) 11.90 H (1.7-7.0) K/uL Lymph # (Auto) 3.40 H (0.90-2.90) K/uL [place] # (Auto) 1.40 H (0.00-0.90) K/UL Eos # (Auto) 2.70 H (0.00-0.50) K/uL Baso # (Auto) 0.00 (0.00-0.30) K/uL Abs Immat Gran (auto) 0.10 (0.00-0.30) K/uL Imm/Tot Granulo (auto) 0.5 % INR 0.99 (0.91-1.10) APTT 29 (23-33) Seconds D-Dimer Quant (PE/DVT) < 0.27 (0.00-0.50) ug/ml Sodium 136 (135-149) mmol/L Potassium 3.8 (3.6-5.1) mmol/L Chloride 103 (96-114) mmol/L Carbon Dioxide 17 L (20-32) mmol/L Anion Gap 16 H (7-15) mEq/L BUN 24 (7-30) mg/dL Creatinine 1.5 (0.5-1.5) mg/dL Estimated Creat Clear 29.57 Estimated GFR 38 ml/min Glucose 288 H (60-115) mg/dL Lactate 5.4 H* (0.5-1.9) mmol/L Calcium 9.8 (8.4-10.6) mg/dL Magnesium 1.5 (1.5-2.6) mg/dL C-Reactive Protein < 0.5 L (0.5-1.0) mg/dL NT-Pro-B Natriuret Pep 435 H (See Note) pg/mL TSH 1.720 (0.270-4.20) uIU/mL Urine Color Yellow (Yellow) Urine Appearance Clear (Clear) Urine pH 5.5 (5.0-8.5) Ur Specific Ramer 1.010 (1.000-1.030) Urine Protein Negative (Negative) Urine Glucose (UA) Negative (Negative) Urine Ketones Negative (Negative) Urine Blood Negative (Negative) Urine Nitrite Negative (Negative) Urine Bilirubin Negative (Negative) Urine Urobilinogen 0.2 (0.2-1.0) Ur Leukocyte Esterase 1+ A (Negative) Urine RBC 0-2 (0-2) Urine WBC 2-5 (0-5) Ur Squamous Epith Cells Moderate A (None-Few) Other Sediment FEW YEAST (None) Urine Bacteria Few A (None) Ethyl Alcohol < 0.01 (0.01-0.03) % POC Troponin I 0.00 L (0.01-0.04) ng/ml 12/03/24 12/03/24 Range/Units 12:08 14:49 WBC (4.50-11.00) K/uL RBC (4.00-5.20) m/uL Hgb (12.0-16.0) gm/dL Hct (33.0-51.0) % MCV (80-100) fL MCH (26-34) pg MCHC (32-36) gm/dL RDW Coeff of Barrett (11.5-15.5) % Plt Count (140-440) K/uL Neut % (Auto) (42.0-72.0) % Lymph % (Auto) (20-44) % [place] % (Auto) (0.0-11.0) % Eos % (Auto) (0.0-7.0) % Baso % (Auto) (0.0-3.0) % Neut # (Auto) (1.7-7.0) K/uL Lymph # (Auto) (0.90-2.90) K/uL [place] # (Auto) (0.00-0.90) K/UL Eos # (Auto) (0.00-0.50) K/uL Baso # (Auto) (0.00-0.30) K/uL Abs Immat Gran (auto) (0.00-0.30) K/uL Imm/Tot Granulo (auto) % INR (0.91-1.10) APTT (23-33) Seconds D-Dimer Quant (PE/DVT) (0.00-0.50) ug/ml Sodium (135-149) mmol/L Potassium (3.6-5.1) mmol/L Chloride (96-114) mmol/L Carbon Dioxide (20-32) mmol/L Anion Gap (7-15) mEq/L BUN (7-30) mg/dL Creatinine (0.5-1.5) mg/dL Estimated Creat Clear Estimated GFR ml/min Glucose (60-115) mg/dL Lactate 3.2 H 2.4 H (0.5-1.9) mmol/L Calcium (8.4-10.6) mg/dL Magnesium (1.5-2.6) mg/dL C-Reactive Protein (0.5-1.0) mg/dL NT-Pro-B Natriuret Pep (See Note) pg/mL TSH (0.270-4.20) uIU/mL Urine Color (Yellow) Urine Appearance (Clear) Urine pH (5.0-8.5) Ur Specific Ram[place] (1.000-1.030) Urine Protein (Negative) Urine Glucose (UA) (Negative) Urine Ketones (Negative) Urine Blood (Negative) Urine Nitrite (Negative) Urine Bilirubin (Negative) Urine Urobilinogen (0.2-1.0) Ur Leukocyte Esterase (Negative) Urine RBC (0-2) Urine WBC (0-5) Ur Squamous Epith Cells (None-Few) Other Sediment (None) Urine Bacteria (None) Ethyl Alcohol (0.01-0.03) % POC Troponin I 0.01 (0.01-0.04) ng/ml Imaging Data Chest x-ray: Attestation: I have reviewed the pertinent imaging results. My impression: Negative Radiologist's impression: [place] [address] Diagnostic Imaging Report Patient: Erma Lopez MR#: [id number] : 1960 Acct:[id number] Loc: ED Service Date: 12/03/[address]: Ordering Physician: Donald Conroy M.D. Date of Service: 12/03/24 Procedure(s): XR chest 1V Accession Number(s): [id number] cc: Lila Reyna M.D.; Donald Conroy M.D.~ For Patients: As a result of the Cures Act, medical imaging exams and procedure reports are released immediately into your electronic medical record. You may view this report before your referring provider. If you have questions, please contact your health care provider. INDICATION: SOB. COMPARISON: 01/22/2012 TECHNIQUE: Portable AP view of the chest. FINDINGS: Medical Devices: None. Lung Volumes: Adequate inspiration. No significant atelectasis. Lungs: Unchanged benign calcified left basilar granuloma. Otherwise clear lungs. Pleura and Pleural spaces: No significant pleural effusion. No pneumothorax. Mediastinum: Stable cardiomediastinal silhouette. Bony Thorax and Soft Tissues: No significant incidental findings. IMPRESSION: No findings to explain the clinical history. Incidental findings described in the body of the report. Dictated by Robert Hart MD @ 12/03/2024 12:25:04 PM (Electronically Signed) ECG Data Attestation: I personally reviewed and interpreted this ECG as follows: ECG interpretation date: 12/03/24 Prior ECG tracings: available for review Interpretation: EKG initially shows atrial fibrillation, with a rate of 150, computers: This sinus tachycardia but clearly it is AFib. That almost appears at times there is some normal sinus rhythm interspersed with here. This is reviewed from the EKG from the clinic, which shows atrial fibrillation. Normal QRS, normal QT QTC. Critical Care Time Critical Care Time Critical Care Time: Yes Attestation: The patient required my highest level preparedness to intervene emergently and I personally spent this critical care time directly and personally managing the patient. This critical care time included: Obtaining a history; Examining the patient; Pulse oximetry; Ordering and reviewing of studies; Arranging urgent treatment with development of a management plan; Evaluation of patients response to treatment; Frequent reassessment discussions with other providers. This critical care time was performed to assess and manage the high probability of imminent life-threatening deterioration that could result in multiorgan failure. It was exclusive of separate billable procedures and treating other patients and teaching time. Total Critical Care Time in Minutes: 90 Discharge Plan Discharge Clinical Impression: Atrial fibrillation, Acute dehydration Patient Disposition: Home w/ Parent or Adult Condition: Improved Instructions: A-fib (Atrial Fibrillation) (ED), Dehydration (DC) Additional Instructions: Home rest continue to monitor, if increasing chest pain shortness of breath or rapid heart rate to come back and be seen, follow-up with your primary care physician within the next week for further workup for your atrial fibrillation, we will grow the cultures of both your urine in your blood to ensure that there is no evidence of an infection, I think I am a low suspicion given your response to treatment but still possible. Activity Level: Light activity Prescriptions: No Action atorvastatin 20 mg tablet 20 mg PO DAILY Otezla 30 mg tablet 30 mg PO BID aspirin [Adult Aspirin Regimen] 81 mg tablet,delayed release (DR/EC) 81 mg PO DAILY bupropion HCl 150 mg tablet sustained-release 12 hr 150 mg PO DAILY clobetasol 0.05 % cream topical BID PRN cholecalciferol (vitamin D3) meclizine 12.5 mg tablet 12.5 mg PO 3XD PRN (Reason: vertigo) glimepiride 4 mg tablet 4 mg PO DAILY fluoxetine 10 mg capsule 10 mg PO DAILY gabapentin 300 mg capsule PO hydrocortisone 2.5 % cream topical BID hydrochlorothiazide 25 mg tablet 25 mg PO DAILY losartan 100 mg tablet 100 mg PO DAILY metformin 500 mg tablet extended release 24 hr 1,000 mg PO BID Ozempic 2 mg/dose (8 mg/3 mL) pen injector SUBCUT Patient Comments: [NO ORIGINAL SIG] Fish Oil Follow Up/Referrals: Lila Reyna MD [Referring, Family Practice] Stand Alone Forms: [facility] Info Instructions
== END 2024-12-03 15:56 | disposition home or self-care (01) ==
PROVIDERS: Emergency Provider Family Medicine; PCP Physician Assistant Medical
DX: I48.91 Unspecified atrial fibrillation (principal); E86.0 Dehydration; R42 Dizziness and giddiness
CPT/HCPCS: 36415; 71045; 80048; 81001; 82077; 83605; 83735; 83880; 84443; 84484; 85025; 85379; 85610; 85730; 86140; 87040; 87086; 93005; 94761; 99285; 99291; 99292; A9270; J3475; J7030; J7120

== ENCOUNTER 2025-03-19 13:36 | Emergency (ER) | payer BC, SELFPAY ==
[2025-03-19 13:54] VITALS: BP 165/95; PULSE 67; RESP 18; TEMP 36.2; O2SAT 98; BMI 29.3
--- NOTE | 2025-03-19 14:20 | ED.CHESTPAIN ---
HPI - Chest Pain General Chief Complaint: Chest Pain Stated Complaint: chest pain/ high BP Time Seen by Provider: 03/19/25 14:02 History of Present Illness HPI narrative: This 64-year-old female comes in with her reporting an episode of chest discomfort that began about 2 hours prior to arrival. She states that she had lunch and then felt something burning up in her throat and extending down into her chest. She tried to drink water to believed these symptoms. She did not have any nausea, vomiting, lightheadedness, shortness of breath, or diaphoresis. She states that she is no longer having any such symptoms. She has a history of atrial fibrillation documented a few months ago. She is taking anticoagulants but has not continued in atrial fibrillation. She reports risk factors including family history, hyperlipidemia. She arrives here with normal vital signs. She does not report any exercise intolerance. She states she is able to exert herself and does not have any abnormal symptoms when doing so. Related Data Home Medications ?Medication ?Instructions ?Recorded ?Confirmed Fish Oil 12/03/24 apremilast 30 mg tablet (Otezla) 30 mg PO BID 12/03/24 03/19/25 atorvastatin 20 mg tablet 20 mg PO DAILY 12/03/24 03/19/25 bupropion HCl 150 mg tablet,12 hr 150 mg PO DAILY 12/03/24 03/19/25 sustained-release cholecalciferol (vitamin D3) 12/03/24 clobetasol 0.05 % topical cream topical BID PRN 12/03/24 fluoxetine 10 mg capsule 10 mg PO DAILY 12/03/24 03/19/25 gabapentin 300 mg capsule 600 mg PO 12/03/24 glimepiride 4 mg tablet 4 mg PO DAILY 12/03/24 03/19/25 hydrochlorothiazide 25 mg tablet 25 mg PO DAILY 12/03/24 03/19/25 hydrocortisone 2.5 % topical cream applic topical BID 12/03/24 losartan 100 mg tablet 100 mg PO DAILY 12/03/24 03/19/25 meclizine 12.5 mg tablet 12.5 mg PO 3XD PRN vertigo 12/03/24 03/19/25 metformin 500 mg tablet,extended 1,000 mg PO BID 12/03/24 03/19/25 release 24 hr semaglutide 2 mg/dose (8 mg/3 mL) 2 mg subcut 12/03/24 subcutaneous pen injector (Ozempic) apixaban 5 mg tablet (Eliquis) 5 mg PO BID 03/19/25 03/19/25 Allergies Allergy/AdvReac Type Severity Reaction Status Date / Time Sulfa (Sulfonamide Allergy Intermediate Verified 12/03/24 08:20 Antibiotics) lisinopril Allergy Mild Verified 12/03/24 08:20 Review of Systems Status of ROS Reports: 10 or more systems reviewed and unremarkable except as noted in History and below Narrative Constitutional: No fevers, no weight gain or loss. Eyes: No discharge. No vision changes. HENT: No congestion, no sore throat, no ear pain. Cardiovascular: No palpitations. Respiratory: No shortness of breath, no wheezes, no cough. Gastrointestinal: No abdominal pain, no vomiting, no diarrhea. Genitourinary: No dysuria, no hematuria. Musculoskeletal: Normal range of motion. Skin: No rashes, no pruritis. Neurological: No dizziness, weakness, sensory change, speech change. Endo/Heme/Allergies: No bruising or bleeding. No polydipsia. Pysch: no suicidality, no anxiety, no insomnia. All other systems reviewed and are negative. [facility] Social History Non-prescribed substance use: denies use Exam Narrative Exam Narrative: Constitutional: Well-developed, well-nourished, no acute distress. HEENT: Normocephalic, atraumatic. Neck: Normal range of motion. Nontender. Supple. Heart: Regular. No murmurs. Normal rate. Intact distal pulses. Lungs: Clear to auscultation. No chest discomfort. No wheezes, rhonchi, or rales. Abdomen: Normal bowel sounds. Nontender. No rebound tenderness. Genitalia: Deferred. Back: No midline tenderness. Normal range of motion. Extremities: Normal range of motion. No injury. Skin: Intact. No rash. Warm. No erythema or pallor. Neurologic: No altered sensation. No weakness. Alert and oriented. Psychiatric: No suicidality. No anxiety or depression. No insomnia. Nursing notes and vitals signs are reviewed. Const Vital Signs, click to edit/add: Vital Signs - 24 hr 03/19/25 13:54 Temperature 97.1 F L Pulse Rate [Right Pulse Oximeter] 67 Respiratory Rate 18 Blood Pressure [Right Upper Arm] 165/95 H Pulse Oximetry 98 Oxygen Delivery Method Room Air Course Vital Signs Vital signs: Initial Vital Signs Temperature 97.1 F L 03/19/25 13:54 Temperature Source Temporal Artery Scan 03/19/25 13:54 Pulse Rate 67 03/19/25 13:54 Respiratory Rate 18 03/19/25 13:54 Blood Pressure 165/95 H 03/19/25 13:54 Blood Pressure Mean 118 H 03/19/25 13:54 Blood Pressure Position Sitting 03/19/25 13:54 Pulse Oximetry 98 03/19/25 13:54 Oxygen Delivery Method Room Air 03/19/25 13:54 Vital Signs Temperature 97.1 F L 03/19/25 13:54 Pulse Rate 67 03/19/25 13:54 Respiratory Rate 18 03/19/25 13:54 Blood Pressure 165/95 H 03/19/25 13:54 Pulse Oximetry 98 03/19/25 13:54 Oxygen Delivery Method Room Air 03/19/25 13:54 Temperature 97.1 F L 03/19/25 13:54 Pulse Rate 67 03/19/25 13:54 Respiratory Rate 18 03/19/25 13:54 Blood Pressure 165/95 H 03/19/25 13:54 Pulse Oximetry 98 03/19/25 13:54 Oxygen Delivery Method Room Air 03/19/25 13:54 MDM - Chest Pain MDM Narrative Medical decision making narrative: This patient comes in reporting an episode of chest discomfort as described above. She does have cardiac risk factors but her symptoms are really not that suspicious of a cardiac cause. Her EKG today returns with normal sinus rhythm and no sign of ST or T-wave abnormalities. Additionally her troponin returns in normal range. Other lab results are also normal. Her glucose is around 180 but she does have a history of diabetes. She is okay to be discharged home. She states that she did have an echocardiogram in the past few months with reassuring results. Lab Data Labs: Lab Results 03/19/25 03/19/25 Range/Units 14:19 14:43 WBC 8.05 (4.50-11.00) K/uL RBC 4.09 (4.00-5.20) m/uL Hgb 11.6 L (12.0-16.0) gm/dL Hct 36.0 (33.0-51.0) % MCV 88 (80-100) fL MCH 28 (26-34) pg MCHC 32 (32-36) gm/dL RDW Coeff of Barrett 13.3 (11.5-15.5) % Plt Count 333 (140-440) K/uL Neut % (Auto) 67.7 (42.0-72.0) % Lymph % (Auto) 21.7 (20-44) % Sanborn % (Auto) 6.7 (0.0-11.0) % Eos % (Auto) 2.4 (0.0-7.0) % Baso % (Auto) 0.4 (0.0-3.0) % Neut # (Auto) 5.45 (1.7-7.0) K/uL Lymph # (Auto) 1.75 (0.90-2.90) K/uL Sanborn # (Auto) 0.50 (0.00-0.90) K/UL Eos # (Auto) 0.19 (0.00-0.50) K/uL Baso # (Auto) 0.03 (0.00-0.30) K/uL Abs Immat Gran (auto) 0.09 (0.00-0.30) K/uL Imm/Tot Granulo (auto) 1.1 % Sodium 139 (135-149) mmol/L Potassium 3.9 (3.6-5.1) mmol/L Chloride 101 (96-114) mmol/L Carbon Dioxide 26 (20-32) mmol/L Anion Gap 12 (7-15) mEq/L BUN 15 (7-30) mg/dL Creatinine 0.9 (0.5-1.5) mg/dL Estimated Creat Clear 44.36 Estimated GFR 71 ml/min Glucose 188 H (60-115) mg/dL Calcium 8.5 (8.4-10.6) mg/dL POC Troponin I 0.01 (0.01-0.04) ng/ml ECG Data Attestation: I personally reviewed and interpreted this ECG as follows: Interpretation: Normal sinus rhythm. Rate is 66 beats per minute. There are no ST or T-wave abnormalities. Discharge Plan Discharge Clinical Impression: Atypical chest pain Patient Disposition: Home, Self-Care Condition: Stable Additional Instructions: Continue current plans. Follow up with MD return if symptoms are recurrent or worsening. Prescriptions: No Action atorvastatin 20 mg tablet 20 mg PO DAILY Otezla 30 mg tablet 30 mg PO BID bupropion HCl 150 mg tablet sustained-release 12 hr 150 mg PO DAILY clobetasol 0.05 % cream topical BID PRN cholecalciferol (vitamin D3) meclizine 12.5 mg tablet 12.5 mg PO 3XD PRN (Reason: vertigo) glimepiride 4 mg tablet 4 mg PO DAILY fluoxetine 10 mg capsule 10 mg PO DAILY gabapentin 300 mg capsule 600 mg PO hydrocortisone 2.5 % cream topical BID hydrochlorothiazide 25 mg tablet 25 mg PO DAILY losartan 100 mg tablet 100 mg PO DAILY metformin 500 mg tablet extended release 24 hr 1,000 mg PO BID Ozempic 2 mg/dose (8 mg/3 mL) pen injector 2 mg SUBCUT Patient Comments: [NO ORIGINAL SIG] Fish Oil Eliquis 5 mg tablet 5 mg PO BID Follow Up/Referrals: Lupe Qiu PAJuan CarlosC [Primary Care Provider, Family Practice] Stand Alone Forms: [employer] Info Instructions
[2025-03-19 15:01] LABS: Troponin, Point-of-Care* 0.01 ng/ml (0.01-0.04)
[2025-03-19 15:01] LABS: Hematocrit* 36.0 % (33.0-51.0); Hemoglobin* 11.6 gm/dL (12.0-16.0); Immature Granulocytes Abs Auto 0.09 K/uL (0.00-0.30); Immature Granulocytes Pct Auto 1.1 %; Lymphocytes Absolute Auto 1.75 K/uL (0.90-2.90); Mean Corpuscular HGB Conc 32 gm/dL (32-36); Mean Corpuscular Hemoglobin 28 pg (26-34); Mean Corpuscular Volume 88 fL (80-100); RDW Coefficient of Variation % 13.3 % (11.5-15.5); Red Blood Count* 4.09 m/uL (4.00-5.20); White Blood Count* 8.05 K/uL (4.50-11.00)
[2025-03-19 15:07] LABS: Chloride* 101 mmol/L (96-114); Potassium* 3.9 mmol/L (3.6-5.1); Sodium* 139 mmol/L (135-149)
[2025-03-19 15:08] LABS: Slide Review Reflex No
[2025-03-19 15:10] LABS: Anion Gap 12 mEq/L (7-15); Blood Urea Nitrogen* 15 mg/dL (7-30); Calcium* 8.5 mg/dL (8.4-10.6); Carbon Dioxide* 26 mmol/L (20-32); Creatinine* 0.9 mg/dL (0.5-1.5); Est. Creatinine Clearance* 44.36; Estimated Glomerular Filt Rate 71 ml/min; Glucose* 188 mg/dL (60-115)
== END 2025-03-19 15:51 | disposition home or self-care (01) ==
PROVIDERS: Emergency Provider Emergency Medicine Emergency Medical Services; PCP Physician Assistant Medical
DX: R07.89 Other chest pain (principal)
CPT/HCPCS: 36415; 80048; 84484; 85025; 93005; 99284